=== PATIENT | male | born 1970 | race Hispanic/Latino ===

== ENCOUNTER 2022-06-12 14:46 | Emergency (ER) | payer MEDICARE ==
[~2022-06-12] VITALS: Ht 182.9 cm; Wt 124.7 kg
[~2022-06-12 14:46] MED LIST: CALC667T6 PO; CARV12.511 PO; DOXYCYCLINE PO; FOLI1TAB85 PO; INSU100I3 SQ; INSU3INS3 SQ; TRAM-355 PO
[2022-06-12 15:11] LABS: BASOPHILS % (AUTO) 0.4 % (0.0-5.0); EOSINOPHILS % (AUTO) 2.2 % (0.0-8.0); HEMATOCRIT 32.1 % (42-54); LYMPHOCYTES % (AUTO) 21.9 % (21.0-51.0); MEAN CORPUSCULAR HEMOGLOBIN 31.1 pg (27.0-33.0); MEAN CORPUSCULAR HGB CONC 34.3 g/dL (32.0-36.0); MEAN CORPUSCULAR VOLUME 90.7 fL (79-99); MONOCYTES % (AUTO) 8.5 % (3.0-13.0); NEUTROPHILS % (AUTO) 66.8 % (40.0-77.0); PLATELET COUNT (AUTO) 201 K/uL (130-400); RED BLOOD CELL COUNT(AUTO) 3.54 MIL/uL (4.50-6.20); RED CELL DISTRIBUTION WIDTH 12.5 % (11.0-15.5); WHITE BLOOD COUNT (AUTO) 9.1 K/uL (4.8-10.8)
[2022-06-12 15:24] LABS: ALBUMIN 3.6 g/dL (3.5-5.0); POTASSIUM 4.9 mmol/L (3.5-5.1); TOTAL PROTEIN, SERUM 8.1 g/dL (6.0-8.3)
[2022-06-12 15:26] LABS: CREATININE 12.1 mg/dL (0.5-1.5)
[2022-06-12 19:27] VITALS: BP 140/84
== END 2022-06-12 19:34 | disposition home or self-care (01) ==
LOC: EDH 14:46
DX: M94.0 Chondrocostal junction syndrome [Tietze] (principal); E11.22 Type 2 diabetes mellitus with diabetic chronic kidney disease; I12.0 Hypertensive chronic kidney disease with stage 5 chronic kidney disease or end stage renal disease; N18.6 End stage renal disease; Z99.2 Dependence on renal dialysis; Z79.4 Long term (current) use of insulin; Z79.899 Other long term (current) drug therapy
CPT/HCPCS: 36415; 71045; 80053; 84484; 85025; 93005

== ENCOUNTER 2022-07-17 15:16 | Observation (INO) | payer MEDICARE ==
[2022-07-17] VITALS (7 sets, daily range): BP systolic 121–136; BP diastolic 63–74
[~2022-07-17] VITALS: Ht 182.9 cm; Wt 123.8 kg
[~2022-07-17 15:16] MED LIST changes: +ASPI-1197 PO; +CALC0.253 PO; -CALC667T6 PO; -CARV12.511 PO; +CINA60TA4 PO; +CLOP-31 PO; -DOXYCYCLINE PO; -FOLI1TAB85 PO; +INSU100C6 SQ; -INSU100I3 SQ; +INSU100V12 SQ; -INSU3INS3 SQ; +LEVO-70 PO; +PRAV20TA4 PO; -TRAM-355 PO; +TRAZ-185 PO
[2022-07-17 15:49] LABS: BASOPHILS % (AUTO) 0.6 % (0.0-5.0); EOSINOPHILS % (AUTO) 2.7 % (0.0-8.0); HEMATOCRIT 33.2 % (42-54); LYMPHOCYTES % (AUTO) 22.7 % (21.0-51.0); MEAN CORPUSCULAR HEMOGLOBIN 31.4 pg (27.0-33.0); MEAN CORPUSCULAR VOLUME 92.2 fL (79-99); MONOCYTES % (AUTO) 8.7 % (3.0-13.0); NEUTROPHILS % (AUTO) 65.1 % (40.0-77.0); PLATELET COUNT (AUTO) 186 K/uL (130-400); RED CELL DISTRIBUTION WIDTH 12.4 % (11.0-15.5); WHITE BLOOD COUNT (AUTO) 9.3 K/uL (4.8-10.8)
[2022-07-17 15:59] LABS: INR 1.1 (0.85-1.15); PROTHROMBIN TIME 11.9 SEC (9.6-11.6)
[2022-07-17 16:00] LABS: PARTIAL THROMBOPLASTIN TIME 28.8 SEC (26.3-35.5)
[2022-07-17 16:08] LABS: ALBUMIN 3.7 g/dL (3.5-5.0); POTASSIUM 4.2 mmol/L (3.5-5.1)
[2022-07-17 16:13] LABS: CREATININE 11.8 mg/dL (0.5-1.5)
[2022-07-17] MEDS ORDERED: LACTATED RINGERS 1000ML 1,000 ML IV SCH (18:30)
[2022-07-17] MEDS ORDERED: POTASSIUM CHLORIDE 10MEQ/100ML 100 ML IV PRN (18:30)
[2022-07-17] MEDS ORDERED: LIDOCAINE HCL-MPF 1% 2ML VIAL IV PRN (18:30)
[2022-07-17] MEDS ORDERED: MORPHINE 4 MG SYG IV PRN (18:30)
[2022-07-17] MEDS ORDERED: MORPHINE 2 MG SYG IV PRN (18:30)
[2022-07-17] MEDS ORDERED: MAGNESIUM 2GM PREMIX 50ML 50 ML IV PRN (18:30)
[2022-07-17] MEDS ORDERED: ONDANSETRON 4MG INJ IV PRN (18:30)
[2022-07-17] MEDS ORDERED: ACETAMINOPHEN 325 MG TAB PO PRN ×2 (18:30)
[2022-07-17] MEDS ORDERED: BUPIVACAINE/PF 0.25% 10ML VIAL IJ ONE (18:42)
[2022-07-17] MEDS ORDERED: LIDOCAINE HCL 1% MDV 50ML VIAL ONE (18:42)
[2022-07-17] MEDS ORDERED: CEFAZOLIN SODIUM 1 GM VIAL ONE (18:43)
[2022-07-17] MEDS ORDERED: MIDAZOLAM HCL 1 MG/ML 2ML VIAL ONE ×2 (19:18→19:22)
[2022-07-17] MEDS ORDERED: MEPERIDINE-PF 25 MG/ML SYG ONE ×2 (19:18→19:22)
[2022-07-17] MEDS ORDERED: THROMBIN-JMI 5000 UNIT/VIAL TP ONE (20:07)
[2022-07-17] MEDS ORDERED: BACITRACIN 1 EACH PACKET TP ONE (20:43)
[2022-07-17] MEDS ORDERED: FAMOTIDINE 20MG VIAL IV SCH (21:00)
[2022-07-17] MEDS: HEPARIN 5,000 UNIT VIAL SQ SCH (21:00)
[2022-07-17] MEDS: INSULIN HUMULIN R 100 UNIT/ML 3ML SQ SCH (23:00)
[2022-07-18] VITALS (22 sets, daily range): BP systolic 118–168; BP diastolic 61–93
[2022-07-18] MEDS ORDERED: CEFAZOLIN SODIUM 1 GM VIAL IVP ONE ×2 (02:00)
[2022-07-18 04:18] LABS: BASOPHILS % (AUTO) 0.6 % (0.0-5.0); EOSINOPHILS % (AUTO) 2.2 % (0.0-8.0); HEMATOCRIT 32.7 % (42-54); LYMPHOCYTES % (AUTO) 15.4 % (21.0-51.0); MEAN CORPUSCULAR HEMOGLOBIN 30.6 pg (27.0-33.0); MEAN CORPUSCULAR HGB CONC 32.4 g/dL (32.0-36.0); MEAN CORPUSCULAR VOLUME 94.5 fL (79-99); NEUTROPHILS % (AUTO) 71.3 % (40.0-77.0); PLATELET COUNT (AUTO) 176 K/uL (130-400); RED BLOOD CELL COUNT(AUTO) 3.46 MIL/uL (4.50-6.20); RED CELL DISTRIBUTION WIDTH 12.5 % (11.0-15.5); WHITE BLOOD COUNT (AUTO) 10.6 K/uL (4.8-10.8)
[2022-07-18 04:20] LABS: HEMOGLOBIN A1C 6.4 % (4.0-6.0)
[2022-07-18 04:25] LABS: INR 1.09 (0.85-1.15); PROTHROMBIN TIME 11.8 SEC (9.6-11.6)
[2022-07-18 04:26] LABS: PARTIAL THROMBOPLASTIN TIME 28.8 SEC (26.3-35.5)
[2022-07-18 04:37] LABS: MAGNESIUM 2.2 mg/dL (1.80-2.40); PHOSPHORUS 7.5 mg/dL (2.5-4.9); POTASSIUM 5.3 mmol/L (3.5-5.1); THYROID STIMULATING HORMONE 3.91 uIU/mL (0.36-3.74)
[2022-07-18 04:39] LABS: CREATININE 12.9 mg/dL (0.5-1.5)
[2022-07-18] MEDS: INSULIN HUMULIN R 100 UNIT/ML 3ML SQ SCH ×4 (06:42→20:37)
[2022-07-18] MEDS ORDERED: FUROSEMIDE 40MG VIAL IV ONE (08:15)
[2022-07-18] MEDS ORDERED: METOPROLOL TARTRATE 25 MG TAB ONE (08:29)
[2022-07-18] MEDS: FAMOTIDINE 20MG VIAL IV SCH (08:32)
[2022-07-18] MEDS: HEPARIN 5,000 UNIT VIAL SQ SCH ×2 (08:47→20:36)
[2022-07-18] MEDS ORDERED: ENOXAPARIN SODIUM 40 MG/0.4 ML SYRINGE SQ SCH (09:00)
[2022-07-18] MEDS ORDERED: METOPROLOL TARTRATE 25 MG TAB PO SCH (09:00)
[2022-07-18] MEDS ORDERED: METOPROLOL TARTRATE 25 MG TAB PO ONE (09:40)
[2022-07-18] MEDS: METOPROLOL TARTRATE 25 MG TAB PO SCH ×3 (16:00→23:47)
[2022-07-18] MEDS ORDERED: TRAZODONE HCL 50 MG TAB PO SCH (21:00)
[2022-07-19 03:43] VITALS: BP 107/63
[2022-07-19 04:47] LABS: BASOPHILS % (AUTO) 0.4 % (0.0-5.0); EOSINOPHILS % (AUTO) 2.9 % (0.0-8.0); LYMPHOCYTES % (AUTO) 19.1 % (21.0-51.0); MEAN CORPUSCULAR HEMOGLOBIN 30.6 pg (27.0-33.0); MEAN CORPUSCULAR HGB CONC 32.3 g/dL (32.0-36.0); MEAN CORPUSCULAR VOLUME 94.6 fL (79-99); MONOCYTES % (AUTO) 12.6 % (3.0-13.0); NEUTROPHILS % (AUTO) 64.7 % (40.0-77.0); PLATELET COUNT (AUTO) 171 K/uL (130-400); RED BLOOD CELL COUNT(AUTO) 3.17 MIL/uL (4.50-6.20); RED CELL DISTRIBUTION WIDTH 12.6 % (11.0-15.5)
[2022-07-19 05:11] LABS: ALBUMIN 3.3 g/dL (3.5-5.0); POTASSIUM 4.7 mmol/L (3.5-5.1); TOTAL PROTEIN, SERUM 7.4 g/dL (6.0-8.3)
[2022-07-19] MEDS: METOPROLOL TARTRATE 25 MG TAB PO SCH ×2 (06:10→12:29)
[2022-07-19] MEDS: INSULIN HUMULIN R 100 UNIT/ML 3ML SQ SCH ×2 (06:10→12:35)
[2022-07-19] MEDS: FAMOTIDINE 20MG VIAL IV SCH (07:58)
[2022-07-19] MEDS: HEPARIN 5,000 UNIT VIAL SQ SCH (08:13)
[2022-07-19 08:17] VITALS: BP 121/75
[2022-07-19] MEDS ORDERED: CINACALCET 30 MG TAB PO SCH (09:00)
[2022-07-19] MEDS ORDERED: CALCITRIOL 0.25 MCG CAP PO SCH (09:00)
[2022-07-19] MEDS ORDERED: CLOPIDOGREL 75MG TAB PO SCH (09:00)
[2022-07-19] MEDS ORDERED: ATORVASTATIN 10 MG TABLET PO SCH (09:00)
[2022-07-19] MEDS ORDERED: ASPIRIN 81MG CHEW TAB PO SCH (09:00)
[2022-07-19] MEDS ORDERED: METO-409 PO (12:04)
[2022-07-19 12:36] VITALS: BP 118/71
== END 2022-07-19 14:47 | disposition home or self-care (01) ==
LOC: EDH 15:16 → INTOOBSV 18:10 → EDHIP 18:10 → 2DH 21:41
PROVIDERS: ADMIT Internal Medicine; ATTEND Internal Medicine
DX: T82.119A Breakdown (mechanical) of unspecified cardiac electronic device, initial encounter (principal); I49.5 Sick sinus syndrome; E11.65 Type 2 diabetes mellitus with hyperglycemia; I12.0 Hypertensive chronic kidney disease with stage 5 chronic kidney disease or end stage renal disease; N18.6 End stage renal disease; E11.622 Type 2 diabetes mellitus with other skin ulcer; D63.1 Anemia in chronic kidney disease; E66.9 Obesity, unspecified; E87.1 Hypo-osmolality and hyponatremia; I42.9 Cardiomyopathy, unspecified; I73.9 Peripheral vascular disease, unspecified; E87.5 Hyperkalemia; F32.9 Major depressive disorder, single episode, unspecified; E87.70 Fluid overload, unspecified; I95.3 Hypotension of hemodialysis; Z68.37 Body mass index [BMI] 37.0-37.9, adult; Z51.5 Encounter for palliative care; Z79.4 Long term (current) use of insulin; Z95.0 Presence of cardiac pacemaker; Z99.2 Dependence on renal dialysis; Z79.82 Long term (current) use of aspirin; Z79.02 Long term (current) use of antithrombotics/antiplatelets; Z79.899 Other long term (current) drug therapy; Z98.890 Other specified postprocedural states
CPT/HCPCS: 33215; 96374; 99285; 84484; 80053 ×2; 83880; 85025 ×3; 85610 ×2; 85730 ×2; 87040 ×2; 82948 ×7; 36415 ×3; 71045 ×2; 93005 ×2; 96372 ×2; 90935; 96375; 83036; 84443; 83735; 84100; 80048; 86850; 86900; 86901; 96376; 93306; 93356; A4649 ×2; C1894 ×2; J0690 ×2; J2250 ×2; J2270; J3490 ×5; J2175 ×2; J1815 ×3; G0378 ×22; J1644 ×3; J1940; 99156; 99157